=== PATIENT | male | born 1980 | race Caucasian/White ===

== ENCOUNTER 2018-01-04 15:55 | Emergency (ER) | payer OTHER, BC ==
[2018-01-04 17:33] LABS: BASO % 0.3 % (0.0-1.0); EOS # 0.1 10^3/uL (0.0-0.50); EOS % 0.6 % (0.0-3.0); HEMATOCRIT 44.3 % (42.0-52.0); HEMOGLOBIN 14.9 g/dl (13.5-17.5); IMMATURE GRANULOCYTE % 0.5 % (0-3.0); LYMPH # 1.7 10^3/uL (1.5-4.5); LYMPH % 17.2 % (24.0-44.0); MEAN CORPUSCULAR HEMOGLOBIN 30.3 pg (27.0-33.0); MEAN CORPUSCULAR HGB CONC 33.6 g/dl (32.0-36.5); MONO # 0.7 10^3/uL (0.0-0.8); MONO % 6.7 % (0.0-5.0); NEUTROPHILS # 7.2 10^3/uL (1.8-7.7); NEUTROPHILS % 74.7 % (36.0-66.0); PLATELET COUNT, AUTOMATED 246 10^3/uL (150-450); RED BLOOD COUNT 4.92 10^6/uL (4.30-6.10); RED CELL DISTRIBUTION WIDTH 12.5 % (11.5-14.5); WHITE BLOOD COUNT 9.7 10^3/uL (4.0-10.0)
[2018-01-04 17:39] LABS: ANION GAP 6 MEQ/L (8-16); BLOOD UREA NITROGEN 14 MG/DL (7-18); CALCIUM LEVEL 9.1 MG/DL (8.5-10.1); CARBON DIOXIDE LEVEL 30 MEQ/L (21-32); CHLORIDE LEVEL 104 MEQ/L (98-107); CREATININE FOR GFR 0.95 MG/DL (0.70-1.30); GLOMERULAR FILTRATION RATE > 60.0 (>60); GLUCOSE, FASTING 91 MG/DL (70-100); POTASSIUM SERUM 4.1 MEQ/L (3.5-5.1); SODIUM LEVEL 140 MEQ/L (136-145)
[2018-01-04] MEDS ORDERED: PROHANCE 279.3MG/ML 15ML VIAL (A9576) As Ordered (18:48)
== END 2018-01-04 21:50 | disposition home or self-care (01) ==
LOC: M ED 15:55
DX: H51.22 Internuclear ophthalmoplegia, left eye (principal)
CPT/HCPCS: A9576

== ENCOUNTER → 2018-01-09 | Outpatient (REF) | payer OTHER ==
[2018-01-09 18:54] LABS: FREE T4 0.74 NG/DL (0.76-1.46)
[2018-01-09 18:54] LABS: THYROID STIMULATING HORMONE 0.824 uIU/ML (0.358-3.740)
[2018-01-09 18:58] LABS: VITAMIN B12 LEVEL 1139 PG/ML
[2018-01-09 18:59] LABS: FOLATE 11.3 NG/ML
[2018-01-18 00:39] LABS: ACETYLCHOLINE RCPTOR BINDING A < 0.03 nmol/L (0.00-0.24); ACETYLCHOLINE RCPTOR BLOCK AB 6 % (0-25); ACETYLCHOLINE RCPTOR MODULATIN <12 % (0-20); ANCA-ATYPICAL <1:20 titer (Neg:<1:20); CYTOPLASMIC NEUTROP AB ANCA-C <1:20 titer (Neg:<1:20); PERINUCLEAR AB ANCA-P <1:20 titer (Neg:<1:20); STRIATIONAL ANTIBODIES Negative (Neg:<1:40); VITAMIN B1 LEVEL WHOLE BLOOD 132.8 nmol/L (66.5-200.0); VITAMIN B6,PYRIDOXAL PHOSPHATE 6.3 ug/L (5.3-46.7); VITAMIN E(GAMMA TOCOPHEROL) 1.8 mg/L (0.7-4.9)
== END ==
LOC: M LABNEURO 14:56
DX: H53.2 Diplopia (principal)

== ENCOUNTER → 2018-05-11 | Outpatient (CLI) | payer OTHER ==
[~2018-05-11] MED LIST: ISOVUE-300 61% 50ML VIAL (Q9967) As Ordered ONE; ISOVUE-370 76% 100ML VIAL (Q9967) As Ordered ONE
--- NOTE | 2018-05-12 06:20 | REP ---
Clinical: Diplopia. Technique: Axial contrast enhanced images from the thoracic inlet to the upper abdomen with coronal and sagittal re-formations using 100 ml Isovue 370 intravenous contrast material. Comparison: None. Findings: Bilateral lung mccollum are well-aerated, relatively symmetric, and clear. No consolidation, significant nodule, or mass lesion. No pleural effusion. No pneumothorax. No axillary, hilar, or mediastinal adenopathy. The mediastinum demonstrates normal thoracic aorta, pulmonary vasculature and heart/pericardium. Visualized portions of the thyroid gland are normal. Musculoskeletal structures are intact. Impression: Normal contrast enhanced chest CT. No significant mediastinal or pleuroparenchymal process appreciated. Electronically Signed by Jarrod Ellis MD 05/12/2018 06:11 A
== END ==
LOC: M RAD 07:39
PROVIDERS: ATTEND Psychiatry & Neurology Neurology
DX: H53.2 Diplopia (principal); G70.00 Myasthenia gravis without (acute) exacerbation; D15.0 Benign neoplasm of thymus
CPT/HCPCS: 71260; Q9967